=== PATIENT | female | born 1980 | race Asian ===

== ENCOUNTER → 2017-04-25 | Outpatient (CLI) | payer OTHER | LOC: BMCIMAGING 14:27 | PROVIDERS: ATTEND Internal Medicine | DX: Z12.31 Encounter for screening mammogram for malignant neoplasm of breast (principal) | CPT/HCPCS: G0202 ==

== ENCOUNTER → 2017-10-23 | Outpatient (CLI) | payer OTHER | LOC: FIMAGING 10:29 | PROVIDERS: ATTEND Obstetrics & Gynecology | DX: O09.522 Supervision of elderly multigravida, second trimester (principal); O09.812 Supervision of pregnancy resulting from assisted reproductive technology, second trimester; Z3A.20 20 weeks gestation of pregnancy; Z98.891 History of uterine scar from previous surgery ==

== ENCOUNTER 2017-11-17 06:00 | Inpatient (IN) | payer OTHER ==
--- NOTE | 2017-11-17 10:24 | GHP ---
[f rep st] HISTORY AND PHYSICAL DATE OF ADMISSION: 11/17/2017 ADMITTING DIAGNOSIS: Intrauterine demise at 20 weeks 4 days. HISTORY OF PRESENT ILLNESS: The patient is a 37-year-old, 2, para 1-0-0 -1, at 20 4/7 weeks with an estimated due date 03/08/2018 by IVF and embryo transfer 07/20/2017. The patient presented to my office two days ago for her routine visit. No heart tones were heard with Doppler. The patient then had an ultrasound that confirmed demise at 20 weeks 4 days with a large amount of edema, little fluid, anterior placenta, and size less than dates by 3 1/2 weeks. The patient and her , Jay were given support. Consulted about next steps, induction of labor with Cytotec versus D and E. Risks of both were discussed. The patient was going to consider her options and call the office. Patient called me yesterday and states they want to proceed with induction process. The patient denies any leakage of fluid, vaginal bleeding, or any contractions. The patient does have good care and presented to [facility] in her first trimester. is complicated by advanced maternal age. All genetic testing was negative. This by IVF, embryo transfer. The patient had a Level 2 ultrasound with MFM, the anatomy of abdominal wall, cord insertion and thoracic spine were suboptimally reviewed due to position. The patient was to follow up in 4 weeks to complete the anatomy evaluation and get a echo. The patient had a previous secondary to CPD. She is Rh negative. PAST OB HISTORY: In 2014, she delivered a viable male infant, at 39 weeks, weighing 7 pounds 8 ounces, via secondary to CPD, she pushed for 3-4 hours. GYNECOLOGIC HISTORY: Age of menarche 10-11 years. Cycle every 20-30 days for 2 -3 days. Patient has history of infertility and conceived G1 via IVF as well. The patient denies a history of abnormal Pap smears. 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 Denies exposure to any other sexually transmitted diseases. Has a history of OCP use, discontinued a year ago in 2014. PAST MEDICAL HISTORY: Advanced maternal age. Infertility. PAST SURGICAL HISTORY: In April 2017, she had a hysteroscopy. In 2014, she had a . MEDICATIONS: Baby aspirin, vitamin with DHEA, vitamin D. ALLERGIES: No known drug allergies. FAMILY HISTORY: Mother at age 61, diagnosed with breast cancer at age 52. SOCIAL HISTORY: Patient is . She is [id number] mom. Lives with her and their son. She denies any alcohol, tobacco or illicit drug use. REVIEW OF SYSTEMS: Ten-point review of systems is negative. Pertinent positives noted in HPI. LABS: Blood type O negative, antibody negative. Early 1 hour Glucola 60. RPR negative, non-reactive. Rubella immune. Hepatitis B surface antigen negative. HIV negative. Trio screen and standard panel negative in 2014. TSH , Free T4 2.25, 1.1. Varicella immune. Urine culture negative. Pap test negative. Gonorrhea and chlamydia cultures negative. AFP negative. Innatal screen negative. Vitamin D 26.7. PHYSICAL EXAMINATION: VITAL SIGNS: On admission, vital signs are stable. The patient is afebrile. GENERAL: Well-nourished, well-developed female, alert, oriented x3. Patient is tearful. CARDIOVASCULAR: Regular rate and rhythm. LUNGS: Clear to auscultation. ABDOMEN: Gravid, soft, nontender. PELVIC: Deferred. EXTREMITIES: Normal to inspection without calf tenderness or edema. ASSESSMENT: The patient is a 37-year-old, 2, para 1- 0-0-1, with intrauterine demise at 20 weeks 4 days. PLAN: 1. Admit to Labor and Delivery. 2. Will start induction with high-dose Cytotec, 400 mcg orally every 4 hours; discussed low risk to uterine scar at this gestational age. 3. Epidural as needed. 4. Will obtain lab work: Torch titers, CBC, ABO, CED and LAC. 5. Discussed with patient and , they want to hold the baby after delivery. They are still considering an autopsy. /[id number]/MODL MTDD
[2017-11-17] MEDS ORDERED: LR 1,000 ML IV PRN (10:45)
[2017-11-17] MEDS ORDERED: MISOPROSTOL 200 MCG TAB PO PRN (10:45)
[2017-11-17] MEDS ORDERED: FENT2MCG/ML&BUP0.1% 1 EA, fentaNYL 200 MCG, BUPIVACAINE 0.5% 20 ML in NS 100 ML IV SCH (11:23)
--- NOTE | 2017-11-17 12:01 | PREANESOB ---
Obstetric Pre-Anesthesia Info - General Info Proposed Procedure: ALCIDES - Info FHR Pattern: Non-reassuring (absent, IUFD) - Labor Status Indications for Labor Analgesia: Pain Control Labor Epidural: Yes Anesthesia ROS: negative Allergies/Adverse Reactions: Allergy/AdvReac Type Severity Reaction Status Date / Time No Known Allergies Allergy Unverified 04/18/15 03:50 Home Medications: Medication Instructions Recorded RX: Hydrocodone/APAP 5/325 [[place] 1 - 2 tab PO Q4 PRN #30 tab 04/21/15 5/325 (*)] Visit Medications: Generic Name Dose Route Start Last Admin Trade Name Freq PRN Reason Stop Dose Admin Lactated Ringer's 1,000 mls @ 0 mls/hr 11/17/17 10:45 Lr IV 11/18/17 10:44 PRN PRN SEE PROTOCOL CONDITIONS Protocol Per Protocol Fentanyl/Bupivacaine HCl 1 ea/ 100 mls @ mls/hr 11/17/17 11:23 Fentanyl 200 mcg/ Bupivacaine IV 11/27/17 11:22 HCl 20 ml/ Sodium Chloride AD JALYN Protocol As Directed Misoprostol 400 mcg 11/17/17 10:45 Cytotec PO Q4H PRN Induction for demise - Anesthesia History Response to Local Anesthetics: Not Applicable Anesthesia & Operative History: No Prior Problems Family Anesthesia History: Not Applicable - Focused Exam Neck exam: FROM Mallampati Score: Class 1 Mouth exam: normal dental/mouth exam Pulmonary: no respiratory distress Cardiovascular: regular rate and rhythym - Plan Consent Signed and on Chart: Yes Patient/Guardian Understands and Agrees to Plan: Yes Urgent/Emergent Case: Nati finch completed preop but documented later for safe timely pt care
[2017-11-17] MEDS ORDERED: BUPIVACAINE 0.25% 30 ML SDV ONE (12:15)
[2017-11-17] MEDS ORDERED: PHENYLEPHRINE HCL 100 MCG/ML SYR ONE (12:16)
[2017-11-17 12:31] LABS: PLATELET COUNT 234 10^3/uL (150-400)
[2017-11-17] MEDS ORDERED: ONDANSETRON 4 MG/2 ML VIAL IVP PRN (13:14)
[2017-11-17] MEDS ORDERED: NALOXONE HCL 0.4 MG/ML INJ IVP PRN (13:14)
[2017-11-17] MEDS ORDERED: PHENYLEPHRINE HCL 100 MCG/ML SYR IVP PRN (13:14)
[2017-11-17] MEDS ORDERED: FENT2MCG/ML&BUP0.1% 1 EA, fentaNYL 200 MCG, BUPIVACAINE 0.5% 20 ML in NS 100 ML EP SCH (13:30)
[2017-11-17] MEDS ORDERED: LR 500 ML IV SCH (13:30)
[2017-11-17] MEDS ORDERED: fentaNYL 2MCG/ML/BUP 0.1% RTU 100 ML EP SCH (13:30)
[2017-11-17] MEDS ORDERED: TERBUTALINE SULFATE 1 MG/ML VIAL ONE (15:54)
[2017-11-17] MEDS ORDERED: LIDOCAINE 1% 300 MG/30 ML SDV ONE (15:54)
[2017-11-17] MEDS ORDERED: OLIVE OIL 118 ML BTL ONE (15:54)
[2017-11-17] MEDS ORDERED: OXYTOCIN 10 UNIT/ML VIAL ONE (15:54)
[2017-11-17] MEDS ORDERED: AMMONIA AROMATIC 1 EACH AMP IH ONE (15:54)
[2017-11-17] MEDS ORDERED: MISOPROSTOL 200 MCG TAB ONE (15:55)
--- NOTE | 2017-11-17 16:45 | OBPROG ---
Labor Progress Note Assessment/Plan: Assessment: 37 y/o @ 20 4/7 wks with IUFD Plan: Continue current management s/p Cytotec x 1 with ctx's q2-3 min SVE FT/25/-2, ant, soft Cont Cytotec q 4hrs, next dose due 1700 s/p epidural-comfortable Will give Immodium for diarrhea 11/17/17 16:52 Subjective/Intrapartum Course: 11/17/17 16:48 Pt is comfortable, s/p epidural. She is resting closing her eyes. Jay is at the bedside. She has had 3 episodes of diarrhea. Objective: 11/17/17 11:40 Patient ABO/Rh O POSITIVE 11/17/17 11:40 - SVE Dilation (cm): 0 Effacement (%): Less than 50 Station: -2 - Contraction Pattern Assessment Current Contraction Pattern: Regular - AP Antepartum Course: 11/17/17 16:49 IUFD at 20 4/7 wks; AMA; IVF with FET; Prior c/s secondary to CPD Oxytocin Orders Assessment - Pre-Induction/Augmentation Assessment Gestational Age: 24 week(s) and 1 day(s) ICD10 Worksheet Patient Problems: Problems Problem Status Onset demise affecting delivery Acute
[2017-11-17] MEDS ORDERED: LOPERAMIDE HCL 2 MG CAP PO PRN (16:52)
[2017-11-17] MEDS: MISOPROSTOL 200 MCG TAB PO SCH ×3 (17:45→23:01)
--- NOTE | 2017-11-17 23:11 | OBPROG ---
Labor Progress Note Assessment/Plan: Assessment: 37 y/o @ 20 4/7 wks with IUFD Plan: Continue current management s/p high-dose Cytotec x 2 SVE 10/19/-2 SROM at 2134, pt afebrile Starting to feel ctx's, may have to rebolus 11/17/17 23:01 Subjective/Intrapartum Course: 11/17/17 16:48 Pt is comfortable, s/p epidural. She is resting closing her eyes. Jay is at the bedside. She has had 3 episodes of diarrhea. 11/17/17 23:11 Pt is starting to feel her ctx's more. She has vomited once, no further diarrhea. She is unable to sleep. Objective: 11/17/17 11:40 Patient ABO/Rh O POSITIVE 11/17/17 11:40 - SVE Dilation (cm): 1 Effacement (%): Less than 50 Station: -2 Membranes: SROM Amniotic Fluid Color: Meconium Stained - Contraction Pattern Assessment Current Contraction Pattern: Regular - AP Antepartum Course: 11/17/17 16:49 IUFD at 20 4/7 wks; AMA; IVF with FET; Prior c/s secondary to CPD Oxytocin Orders Assessment - Pre-Induction/Augmentation Assessment Gestational Age: 24 week(s) and 1 day(s) ICD10 Worksheet Patient Problems: Problems Problem Status Onset demise affecting delivery Acute
[2017-11-17] MEDS ORDERED: ZOLPIDEM TARTRATE 5 MG TAB PO ONE (23:23)
[2017-11-18 00:30] LABS: INR 0.93 (0.83-1.16); PROTIME(PATIENT) 12.7 SEC (12.0-15.0)
[2017-11-18] MEDS: MISOPROSTOL 200 MCG TAB PO SCH (03:46)
--- NOTE | 2017-11-18 04:18 | OBPROG ---
Labor Progress Note Assessment/Plan: Assessment: 37 y/o @ 20 4/7 wks with IUFD Plan: Continue current management s/p high-dose Cytotec x 3 SVE 50/-1; bulging forebag Pt afebrile 11/18/17 04:07 Subjective/Intrapartum Course: 11/17/17 16:48 Pt is comfortable, s/p epidural. She is resting closing her eyes. Jay is at the bedside. She has had 3 episodes of diarrhea. 11/17/17 23:11 Pt is starting to feel her ctx's more. She has vomited once, no further diarrhea. She is unable to sleep. 11/18/17 04:18 Pt is resting comfortably. A bloody show is noted. Objective: 11/17/17 11:40 Patient ABO/Rh O POSITIVE 11/17/17 11:40 - SVE Dilation (cm): 4 Effacement (%): 50 Station: -1 Membranes: SROM (bulging forebag) Amniotic Fluid Color: Meconium Stained - Contraction Pattern Assessment Current Contraction Pattern: Regular - AP Antepartum Course: 11/17/17 16:49 IUFD at 20 4/7 wks; AMA; IVF with FET; Prior c/s secondary to CPD Oxytocin Orders Assessment - Pre-Induction/Augmentation Assessment Gestational Age: 24 week(s) and 1 day(s) ICD10 Worksheet Patient Problems: Problems Problem Status Onset demise affecting delivery Acute
[2017-11-18] MEDS ORDERED: METHYLERGONOVINE MAL 0.2 MG/ML INJ ONE (05:29)
[2017-11-18] MEDS ORDERED: HYDROCODONE/APAP 5/325 TAB PO PRN (05:41)
[2017-11-18] MEDS ORDERED: DOCUSATE SODIUM 100 MG CAP PO PRN (05:41)
--- NOTE | 2017-11-18 05:46 | OBDEL ---
Info Type: Vaginal Presentation at Delivery: Vertex (unknown- fetus had already delivered and was in the bed) L&D Analgesia/Anesthesia Type: Epidural GBS+: No (unknown) Intrapartum Medications: Generic Name Dose Route Start Last Admin Trade Name Freq PRN Reason Stop Dose Admin Lactated Ringer's 1,000 mls @ 0 mls/hr 11/17/17 10:45 11/17/17 12:20 Lr IV 11/18/17 10:44 1,000 mls PRN PRN Administration SEE PROTOCOL CONDITIONS Protocol Per Protocol Loperamide HCl 2 mg 11/17/17 16:52 11/17/17 18:43 Imodium PO 05/16/18 16:51 2 mg QID PRN Administration Diarrhea/Loose Stools Misoprostol 400 mcg 11/17/17 17:00 11/18/17 03:46 Cytotec PO 05/16/18 16:59 400 mcg Q4H JALYN Administration Discontinued Medications Generic Name Dose Route Start Last Admin Trade Name Freq PRN Reason Stop Dose Admin Misoprostol 400 mcg 11/17/17 10:45 11/17/17 12:56 Cytotec PO 400 mcg Q4H PRN Administration Induction for demise Zolpidem Tartrate 5 mg 11/17/17 23:23 11/18/17 00:07 Ambien PO 11/17/17 23:24 5 mg ONCE ONE Administration - Hospital Course Intrapartum: 11/17/17 16:48 Pt is comfortable, s/p epidural. She is resting closing her eyes. Jay is at the bedside. She has had 3 episodes of diarrhea. 11/17/17 23:11 Pt is starting to feel her ctx's more. She has vomited once, no further diarrhea. She is unable to sleep. 11/18/17 04:18 Pt is resting comfortably. A bloody show is noted. 11/19/17 11:39 Indications for Delivery: Elective (IOL for IUFD at 20 4/7 weeks) Vaginal Delivery - Delivery Provider Delivery Physician/CNM: Zaria Howard - Labor and Delivery Onset of Contractions Date: 11/17/17 Onset of Contractions Time: 12:00 Onset of Contractions Type: Induced Rupture of Membranes Date: 11/17/17 Rupture of Membranes Time: 21:34 Rupture of Membranes Type: Spontaneous Amniotic Fluid Color: Meconium Stained Dilation Complete Date: 11/18/17 Dilation Complete Time: 05:15 Placenta Delivery Date: 11/18/17 Placenta Delivery Time: 05:15 Total Hours of Labor: 17 Laceration: Other (Specify) (Perineum intact) Repair: Other (Specify) (none) Vaginal Sponge Count Correct: Yes Vaginal Needle Count Correct: Yes Vaginal Sweep Performed: Yes EBL: 800 cc Delivery Events: None Delivery Comment: Fetus delivered en caul with placenta in bed. Vagina inspected and no lacs noted. Uterine atony noted with bleeding after delivery. Bimanual massage performed with expulsion of about 500 cc blood/clots. Pt was given 800 mcg Cytotec as well as Methergine 0.2 IM. Bleeding slowed down and uterus firm 2-3 below umbilicus. Pt michelle well. No complications. - Medications Labor Augmentation/Induction Methods Used: Misoprostol Labor Augmentation/Induction Indication: Other (Specify) (IUFD) [place] Data MICHAEL: 03/08/18 Gestational Age: 24 week(s) and 5 day(s) Rodriugez Delivery Date: 11/18/17 Delivery Time: 05:15 Sex of Infant: Female ICD10 Worksheet Patient Problems: Problems Problem Status Onset demise affecting delivery Acute
[2017-11-18] MEDS: IBUPROFEN 600 MG TAB PO PRN ×2 (09:41→19:57)
[2017-11-18] MEDS ORDERED: ONDANSETRON DISINTEGRATING 4 MG TAB PO PRN (10:12)
[2017-11-18] MEDS ORDERED: ZOLPIDEM TARTRATE 5 MG TAB PO PRN (10:12)
--- NOTE | 2017-11-18 10:12 | OBPP ---
Progress Note Assessment/Plan: Assessment: 37 y/o PPD #0 s/p IOL secondary to IUFD @ 23 weeks. Plan: We will give the her and her all the time they need with the baby and for processing and paperwork. She will eat now and has Ibuprofen. She desires Zofran and Ibuprofen to d.c home when she is ready. They will be given many resources for therapy and support. And education to call [facility] if she develops a fever, heavy vaginal bleeding or other concerns. 11/18/17 10:09 Subjective/ Course: 11/18/17 10:06 Pt is feeling some increased cramping now. She denies nausea, vomiting and has a good appetite this am. She has her terry d/c but hasn't been up to void yet. Her lochia is minimal. She and her are processing the loss and we had a lengthly discussion about how they are going to grieve, and tell their family and friends. They are not sure when they would like to go home, today or tomorrow. Objective: 11/17/17 11:40 Patient ABO/Rh O POSITIVE 11/17/17 11:40 Uterine Position/Fundal Height: Umbilicus -2 Uterine Tone: Firm Physical Exam - Physical Exam General Appearance: alert, no apparent distress Neck: non-tender, full range of motion, supple Respiratory: chest non-tender, lungs clear, normal breath sounds Cardiac/Chest: regular rate, rhythm Abdomen: normal bowel sounds Extremities: swelling (no), Raissa's sign (neg)
--- NOTE | 2017-11-18 10:15 | OBGCSDC ---
General Delivery Information - General Info : 2 Para: 2 Abortions: 1 Type: Vaginal L&D Analgesia/Anesthesia Type: Epidural Admission Date: 11/17/17 Labs: Patient ABO/Rh O POSITIVE 11/17/17 11:40 Hct 36.4 % (38.0-47.0) L 11/17/17 11:40 - Hospital Course Antepartum: 11/17/17 16:49 IUFD at 20 4/7 wks; AMA; IVF with FET; Prior c/s secondary to CPD Intrapartum: 11/17/17 16:48 Pt is comfortable, s/p epidural. She is resting closing her eyes. Jay is at the bedside. She has had 3 episodes of diarrhea. 11/17/17 23:11 Pt is starting to feel her ctx's more. She has vomited once, no further diarrhea. She is unable to sleep. 11/18/17 04:18 Pt is resting comfortably. A bloody show is noted. : 11/18/17 10:06 Pt is feeling some increased cramping now. She denies nausea, vomiting and has a good appetite this am. She has her terry d/c but hasn't been up to void yet. Her lochia is minimal. She and her are processing the loss and we had a lengthly discussion about how they are going to grieve, and tell their family and friends. They are not sure when they would like to go home, today or tomorrow. Vaginal - Delivery Provider Delivery Physician/CNM: Zaria Howard - Diagnosis Labor: Induced Rupture of Membranes Type: Spontaneous Amniotic Fluid Color: Meconium Stained Laceration: Other (Specify) (Perineum intact) Delivery Events: None - Delivery EBL: 800 cc [place] Data MICHAEL: 03/08/18 Gestational Age: 24 week(s) and 2 day(s) Rodriguez Delivery Date: 11/18/17 Delivery Time: 05:15 Sex of Infant: Female Discharge Information - Discharge Information Prescriptions: Ibuprofen [Motrin (*)] 600 mg PO Q6HRS PRN #30 tab PRN Reason: Pain, Inflammatory Ondansetron Odt [Zofran Odt 4 mg (*)] 4 mg PO Q6HRS PRN #30 tab PRN Reason: Nausea/Vomiting, Use 1st Zolpidem Tartrate [Ambien 5MG (*)] 5 mg PO HS PRN #30 tab PRN Reason: Sleep/Insomnia Instruction/Follow Up: Two Weeks
--- NOTE | 2017-11-20 08:14 | POSTANESTH ---
Post Anesthetic Evaluation Cardiovascular Status: Normal, Stable, Similar to Pre-Op Cond Respiratory Status: Normal, Stable, Similar to Pre-op Cond. Level of Consciousness/Mental Status: Can Participate in Eval, Alert and Oriented Pain Control: Adequate, Prn Tx Ordered Nausea/Vomiting Control: Adequate, Prn Tx Ordered Complications Possibly Related to Anesthesia: None Noted
== END 2017-11-18 21:05 | disposition home or self-care (01) | DRG 775 ==
LOC: FLD 10:20
PROVIDERS: ADMIT Obstetrics & Gynecology; ATTEND Obstetrics & Gynecology
PROC: 10E0XZZ Delivery of Products of Conception, External Approach (ICD-10-PCS; principal; 2017-11-17)
PROC: 3E033VJ Introduction of Other Hormone into Peripheral Vein, Percutaneous Approach (ICD-10-PCS; principal; 2017-11-17)
PROC: 10903ZC Drainage of Amniotic Fluid, Therapeutic from Products of Conception, Percutaneous Approach (ICD-10-PCS; principal; 2017-11-17)
DX: O36.4XX0 Maternal care for intrauterine death, not applicable or unspecified (principal); O77.0 Labor and delivery complicated by meconium in amniotic fluid; Z3A.24 24 weeks gestation of pregnancy; Z37.1 Single stillbirth
CPT/HCPCS: 86147-90; 86644-90; 86645-90; 86694-90; 86777-90; 86778-90; J2210; J2370; J2405; J2590; J3010; J3105

== ENCOUNTER → 2018-10-22 | Outpatient (CLI) | payer OTHER | LOC: FIMAGING 09:46 | PROVIDERS: ATTEND Obstetrics & Gynecology | DX: O09.522 Supervision of elderly multigravida, second trimester (principal); O09.812 Supervision of pregnancy resulting from assisted reproductive technology, second trimester; Z3A.19 19 weeks gestation of pregnancy ==

== ENCOUNTER 2018-11-15 10:00 | Inpatient (IN) | payer OTHER ==
[2018-11-15] MEDS ORDERED: EPSOM SALT 454 GM TP PRN (11:17)
[2018-11-15] MEDS ORDERED: OXYTOCIN/RINGERS LACTATE 1,000 ML IV PRN (11:17)
[2018-11-15] MEDS ORDERED: OLIVE OIL 118 ML BTL MISC PRN (11:17)
[2018-11-15] MEDS ORDERED: LIDOCAINE 1% 300 MG/30 ML SDV SC PRN (11:17)
[2018-11-15] MEDS ORDERED: LR 1,000 ML IV PRN (11:17)
[2018-11-15] MEDS ORDERED: IBUPROFEN 600 MG TAB PO PRN (11:17)
[2018-11-15] MEDS ORDERED: MISOPROSTOL 200 MCG TAB PR PRN (11:17)
[2018-11-15] MEDS: MISOPROSTOL 200 MCG TAB PO SCH (11:33)
[2018-11-15 11:46] LABS: PLATELET COUNT 225 10^3/uL (150-400)
--- NOTE | 2018-11-15 11:55 | GHP ---
[f rep st] PREOP HISTORY AND PHYSICAL DATE OF ADMISSION: 11/15/2018 ADMITTING DIAGNOSIS: Intrauterine at 23 weeks gestation with an intrauterine , for induction of labor. HISTORY OF PRESENT ILLNESS: The patient is a 38-year-old, 3, para 1-0-1-1, who had a e mbryo transfer on 06/26/2018, giving her an EDC of 03/14/2019. Patient presented for her regularly s cheduled appointment yesterday, on 11/14, at 22-6/7 weeks gestation and was very concerned b ecause she had not felt movement. Ultrasound was performed and confirmed an intrauterine . There was no cardiac activity, no movement. There was amniotic fluid seen, poss ible pericardial effusion, and some body edema. Ultrasound was confirmed by 2 physicians. The patie nt had previously been seen 2 weeks prior with concerns of decreased movement and had normal Do ptones in the 140s, but no ultrasound was performed. Her level 2 ultrasound with MFM was on 10/22/19 19, and was within normal limits. Unfortunately, patient has a history of an intrauterine deat h on 11/17/2017, at 20 weeks gestation. She underwent a Cytotec induction of labor and had a spontan eous vaginal delivery with that baby. She is familiar with the process, understands her options of s urgical dilation and extraction done with a specialist in [place] versus an induction of labor and a v aginal delivery here at [facility], and she wishes to have an induction of labor as she did in 2018. Currently, she has had minimal fundal cramping this morning, but that has resolved. No contr actions, no leakage of fluid, no vaginal bleeding, and no other significant symptoms, and negative re view of symptoms. PAST OBSTETRICAL HISTORY: In 2016, she had a section secondary to arrest. She had a vagina l delivery for her intrauterine last year, a successful . As mentioned, in October of 2017, she had an intrauterine at approximately 20 weeks gestation. This is an IVF pre gnancy from her own embryos that were frozen at age 34. She has had normal labs in this an d a normal level 2 ultrasound prior to yesterday. LABORATORIES: She is O positive, antibody negative. RPR nonreactive. Rubella immune. Hepatitis ne gative. HIV negative. Standard panel negative. PH labs at baseline were normal. P:c ratio was 0.4 5. Urine drug screen was negative. Single marker AFP was normal. Verify was normal. Varicella imm une. Parvovirus negative. SOCIAL HISTORY: She is . She lives with her and her son. She denies tobacco, alcoho l, and drug use. FAMILY HISTORY: Noncontributory. ALLERGIES: She has no known drug allergies. CURRENT MEDICATIONS: Only include vitamins with DHA, vitamin D, and a baby aspirin. OBJECTIVE: Today, she is afebrile. Vital signs are stable. heart tones are not interpreted. [place] is negative as of now. ASSESSMENT AND PLAN: A 38-year-old, 3, para 1-0-1-1, at 23-0/7 weeks gestation today with in trauterine . We will start with Cytotec orally 400 mg q.4. Patient will desire an epidur al for pain control or intravenous narcotics as needed. Patient is deciding about chromosomal analys is and/or autopsy on the baby. /[id number]/MODL
[2018-11-15] MEDS ORDERED: fentaNYL 2MCG/ML/BUP 0.1% RTU 100 ML BAG EP ONE (13:37)
[2018-11-15] MEDS ORDERED: PHENYLEPHRINE HCL 100 MCG/ML SYR ONE (13:39)
[2018-11-15] MEDS ORDERED: ONDANSETRON 4 MG/2 ML VIAL IVP PRN (13:48)
[2018-11-15] MEDS ORDERED: NALOXONE HCL 0.4 MG/ML INJ IVP PRN (13:48)
[2018-11-15] MEDS ORDERED: PHENYLEPHRINE HCL 100 MCG/ML SYR IVP PRN (13:48)
--- NOTE | 2018-11-15 13:48 | PREANESOB ---
Obstetric Pre-Anesthesia Info - General Info Proposed Procedure: induction and delivery after demise : 3 Para: 0 MICHAEL: 03/14/19 Gestational Age: 23 week(s) and 0 day(s) - Info Status: Premature - Labor Status Indications for Labor Analgesia: Augmentation of Labor Labor Epidural: Proposed Anesthesia ROS: No URI x2 weeks demise at 22 weeks. Second occurence. No work-up for clotting disorder, but pt denies any easy bruising or bleeding gums. Allergies/Adverse Reactions: Allergy/AdvReac Type Severity Reaction Status Date / Time No Known Allergies Allergy Unverified 11/15/18 10:42 Home Medications: Medication Instructions Recorded Zolpidem Tartrate [Ambien 5MG (*)] 5 mg PO HS PRN #30 tab 11/18/17 Aspirin [Aspirin 81mg (*)] 81 mg PO DAILY 11/15/18 Pnv No.121/Iron/Folic Acid 1 each PO 11/15/18 [ Multivitamin Tablet] Visit Medications: Generic Name Dose Route Start Last Admin Trade Name Freq PRN Reason Stop Dose Admin Lactated Ringer's 1,000 mls @ 0 mls/hr 11/15/18 11:17 Lr IV 11/16/18 11:16 PRN PRN SEE PROTOCOL CONDITIONS Protocol Per Protocol Oxytocin/Lactated Ringer's 1,000 mls @ 125 mls/hr 11/15/18 11:17 Pitocin 20 Units/Lr (Premix) IV PRN PRN Post bleeding Ibuprofen 600 mg 11/15/18 11:17 Motrin PO ONCE PRN post , pain Lidocaine HCl 300 mg 11/15/18 11:17 Lidocaine Hcl 1% SC 05/14/19 11:16 ONCE PRN episiotomy Magnesium Sulfate 454 gm 11/15/18 11:17 Epsom Salt TP 05/14/19 11:16 Q1H PRN perineal discomfort Misoprostol 800 - 1,000 mcg 11/15/18 11:17 Cytotec WA ONCE PRN Vaginal Atony/Bleeding Misoprostol 400 mcg 11/15/18 11:30 11/15/18 11:33 Cytotec PO 05/14/19 11:29 400 mcg Q6H JALYN Administration [place] Oil 118 ml 11/15/18 11:17 Sweet Oil MISC 05/14/19 11:16 ONCE PRN perineal massage Discontinued Medications Generic Name Dose Route Start Last Admin Trade Name Ashley PRN Reason Stop Dose Admin Fentanyl/Bupivacaine HCl Confirm 11/15/18 13:37 Fentanyl/Bupivacaine/Ns 2 Mcg/Ml 0.1% (Premix Administered 11/15/18 13:38 Dose 100 ml EP .STK-MED ONE Phenylephrine HCl Confirm 11/15/18 13:39 Neosynephrine Administered 11/15/18 13:40 Dose 1,000 mcg .ROUTE .STK-MED ONE - Anesthesia History Response to Local Anesthetics: Normal Anesthesia & Operative History: No Prior Problems Family Anesthesia History: Negative - Vital Signs Height/Weight (Nursing): Height 152.4 cm Weight 48.081 kg Weight: 152 kg Height: 48 cm - Focused Exam Neck exam: FROM Mallampati Score: Class 1 Mouth exam: normal dental/mouth exam Pulmonary: clear to auscultation Cardiovascular: regular rate and rhythym Labs: 11/15/18 11:10 Patient ABO/Rh O POSITIVE 11/15/18 11:10 - Plan Anesthetic Plan: labor epidural Consent Signed and on Chart: Yes Patient/Guardian Understands and Agrees to Plan: Yes General Comments: Plt count normal at 225
[2018-11-15] MEDS ORDERED: fentaNYL 2MCG/ML/BUP 0.1% RTU 100 ML EP SCH (14:00)
[2018-11-15] MEDS ORDERED: LR 500 ML IV SCH (14:00)
[2018-11-15] MEDS: LOPERAMIDE HCL 2 MG CAP PO PRN ×2 (14:40→16:06)
[2018-11-15] MEDS ORDERED: LOPERAMIDE HCL 2 MG CAP PO PRN (16:03)
--- NOTE | 2018-11-15 16:17 | OBPROG ---
Labor Progress Note Assessment/Plan: Assessment: 38 y/o @ 23 weeks with IUFD Plan: One dose of Cytotec 400 mg PO has given her strong and regular contractions and severe diarrhea. I cannot AROM her yet, cervix is only 1 cm and firm. She is leigh too frequently for pitocin or another dose of cytotec. (I'm not inclined to repeat this due to the diarrhea). We will wait 2 more hours and then re assess cervical dilation. Hopefully repeat doses of Imodium will help diarrhea. 11/15/18 16:17 Subjective/Intrapartum Course: 11/15/18 16:12 Pt is comfortable with her epidural, but having significant diarrhea. She received 4 mg of Imodium 1 hour ago and just received another dose. She is feeling cramping but not painful contractions. No LOF, no VB now. Objective: 11/15/18 11:10 Patient ABO/Rh O POSITIVE 11/15/18 11:10 - SVE Dilation (cm): 1 Effacement (%): 50 Station: -2 Membranes: Intact (firm) - Contraction Pattern Assessment Current Contraction Pattern: Regular (Q 2-3 minutes) - AP Antepartum Course: 11/15/18 16:15 AMA IVF demise @ 23 weeks, h/o demise @ 20 weeks 10/2017 Oxytocin Orders Assessment - Pre-Induction/Augmentation Assessment Gestational Age: 23 week(s) and 0 day(s) ICD10 Worksheet Patient Problems: Problems Problem Status Onset demise affecting delivery Acute
[2018-11-15] MEDS ORDERED: OXYTOCIN 10 UNIT/ML VIAL ONE (16:59)
[2018-11-15] MEDS ORDERED: AMMONIA AROMATIC 1 EACH AMP IH ONE (16:59)
[2018-11-15] MEDS ORDERED: TERBUTALINE SULFATE 1 MG/ML VIAL ONE (16:59)
[2018-11-15] MEDS ORDERED: OLIVE OIL 118 ML BTL ONE (16:59)
[2018-11-15] MEDS ORDERED: LIDOCAINE 1% 300 MG/30 ML SDV ONE (16:59)
[2018-11-15] MEDS ORDERED: MISOPROSTOL 200 MCG TAB ONE ×2 (17:00→19:36)
--- NOTE | 2018-11-15 19:04 | OBPROG ---
Labor Progress Note Assessment/Plan: Assessment: 38 y/o @ 23 weeks with IUFD Plan: I placed a second dose of cytotec, this time vaginally 600 mg. I am hopeful that PV dosing may cause less diarrhea than PO, but I feel that pitocin may not be effective at this gestation and I don't want to loose momentum. She is tolerating well and generally comfortable with her epidural. 11/15/18 16:17 11/15/18 19:02 Subjective/Intrapartum Course: 11/15/18 16:12 Pt is comfortable with her epidural, but having significant diarrhea. She received 4 mg of Imodium 1 hour ago and just received another dose. She is feeling cramping but not painful contractions. No LOF, no VB now. 11/15/18 19:01 Pt is aware of some cramping but they are not painful. Diarrhea has improved now, last dose of Imodium was at 18:00. Objective: 11/15/18 11:10 Patient ABO/Rh O POSITIVE 11/15/18 11:10 - SVE Dilation (cm): 1 Effacement (%): 50 Station: -1 Membranes: Intact (firm) - Contraction Pattern Assessment Current Contraction Pattern: Regular (Q 2-3 minutes) - AP Antepartum Course: 11/15/18 16:15 AMA IVF demise @ 23 weeks, h/o demise @ 20 weeks 10/2017 Oxytocin Orders Assessment - Pre-Induction/Augmentation Assessment Gestational Age: 23 week(s) and 0 day(s) ICD10 Worksheet Patient Problems: Problems Problem Status Onset demise affecting delivery Acute
--- NOTE | 2018-11-15 21:41 | OBPROG ---
Labor Progress Note Assessment/Plan: Assessment: 38 y/o @ 23 weeks with IUFD Plan: She is leigh actively after 2nd dose of cytotec. Baby is much lower in her pelvis and her cervix is thin. AROM bloody fluid now. Her uterus is relaxing in between contractions and I do not feel that her uterine scar is compromised now. Will continue to observe closely. 11/15/18 16:17 11/15/18 19:02 11/15/18 21:38 Subjective/Intrapartum Course: 11/15/18 16:12 Pt is comfortable with her epidural, but having significant diarrhea. She received 4 mg of Imodium 1 hour ago and just received another dose. She is feeling cramping but not painful contractions. No LOF, no VB now. 11/15/18 19:01 Pt is aware of some cramping but they are not painful. Diarrhea has improved now, last dose of Imodium was at 18:00. 11/15/18 21:37 Pt has begun to feel "shaky" and having more uterine cramping and some transient discomfort in LLQ portion of her incision. Objective: 11/15/18 11:10 Patient ABO/Rh O POSITIVE 11/15/18 11:10 - SVE Dilation (cm): 2 Effacement (%): 80 Station: +1 Membranes: AROM, Intact (firm) Amniotic Fluid Color: Bloody - Contraction Pattern Assessment Current Contraction Pattern: Regular (Q 1-2 minutes) - Procedures Non-surgical Procedures: Amniotomy - AP Antepartum Course: 11/15/18 16:15 AMA IVF demise @ 23 weeks, h/o demise @ 20 weeks 10/2017 Oxytocin Orders Assessment - Pre-Induction/Augmentation Assessment Gestational Age: 23 week(s) and 0 day(s) ICD10 Worksheet Patient Problems: Problems Problem Status Onset demise affecting delivery Acute
[2018-11-16] MEDS: MISOPROSTOL 200 MCG TAB PO SCH ×2 (00:13→00:16)
[2018-11-16] MEDS ORDERED: METHYLERGONOVINE MAL 0.2 MG/ML INJ ONE (01:31)
[2018-11-16] MEDS ORDERED: HYDROCORTISONE 0.5% CREAM TP PRN (01:41)
[2018-11-16] MEDS ORDERED: SIMETHICONE 80 MG TAB CHEW PO PRN (01:41)
[2018-11-16] MEDS ORDERED: oxyCODONE IR 5 MG TAB PO PRN (01:41)
[2018-11-16] MEDS ORDERED: IBUPROFEN 600 MG TAB PO PRN (01:41)
[2018-11-16] MEDS ORDERED: DOCUSATE SODIUM 100 MG CAP PO PRN (01:41)
[2018-11-16] MEDS ORDERED: ACETAMINOPHEN 325 MG TAB PO PRN (01:41)
--- NOTE | 2018-11-16 01:46 | OBDEL ---
Info Type: Vaginal Presentation at Delivery: Breech L&D Analgesia/Anesthesia Type: Epidural GBS+: No Intrapartum Medications: Generic Name Dose Route Start Last Admin Trade Name Freq PRN Reason Stop Dose Admin Fentanyl/Bupivacaine HCl 100 mls @ 0 mls/hr 11/15/18 14:00 11/15/18 23:44 Fentanyl/Bupivacaine/Ns 2 Mcg/Ml 0.1% (Premix EP 11/25/18 13:59 100 mls CONT JALYN Administration Protocol As Directed Loperamide HCl 2 mg 11/15/18 16:03 11/15/18 18:18 Imodium PO 05/14/19 16:02 2 mg PRN PRN Administration LOOSE STOOLS Misoprostol 400 mcg 11/15/18 11:30 11/16/18 00:16 Cytotec PO 05/14/19 11:29 Not Given Q6H JALYN Discontinued Medications Generic Name Dose Route Start Last Admin Trade Name Freq PRN Reason Stop Dose Admin Loperamide HCl 2 mg 11/15/18 14:29 11/15/18 16:06 Imodium PO 05/14/19 14:28 2 mg QID PRN Administration Diarrhea/Loose Stools - Hospital Course Intrapartum: 11/15/18 16:12 Pt is comfortable with her epidural, but having significant diarrhea. She received 4 mg of Imodium 1 hour ago and just received another dose. She is feeling cramping but not painful contractions. No LOF, no VB now. 11/15/18 19:01 Pt is aware of some cramping but they are not painful. Diarrhea has improved now, last dose of Imodium was at 18:00. 11/15/18 21:37 Pt has begun to feel "shaky" and having more uterine cramping and some transient discomfort in LLQ portion of her incision. Vaginal Delivery - Delivery Provider Delivery Physician/CNM: Shanice Rothman - Labor and Delivery Onset of Contractions Date: 11/15/18 Onset of Contractions Time: 11:40 Onset of Contractions Type: Induced Rupture of Membranes Date: 11/15/18 Rupture of Membranes Type: Artificial Amniotic Fluid Color: Bloody Non-surgical Procedures: Amniotomy Laceration: Other (Specify) (none) Vaginal Sponge Count Correct: Yes Vaginal Needle Count Correct: Yes Vaginal Sweep Performed: Yes EBL: 400 Delivery Events: Other (Specify) (IUFD @ 23 weeks) - Medications Labor Augmentation/Induction Methods Used: Misoprostol Labor Augmentation/Induction Indication: Other (Specify) (IUFD @ 23 weeks) Data MICHAEL: 03/14/19 Gestational Age: 23 week(s) and 1 day(s) Rodriguez Delivery Date: 11/16/18 Delivery Time: 01:14 Sex of : Female ICD10 Worksheet Patient Problems: Problems Problem Status Onset (spontaneous vaginal delivery) Acute demise affecting delivery Acute - ICD10 Problem Qualifiers (1) (spontaneous vaginal delivery) (2) demise affecting delivery
[2018-11-16] MEDS ORDERED: ONDANSETRON 4 MG/2 ML VIAL IVP ONE (03:00)
--- NOTE | 2018-11-16 03:22 | GOP ---
[f rep st] OPERATIVE REPORT DATE OF OPERATION: SURGEON: Shanice Rothman MD PREOPERATIVE DIAGNOSIS: POSTOPERATIVE DIAGNOSIS: PROCEDURE PERFORMED: FINDINGS: DESCRIPTION OF PROCEDURE: Patient was comfortable with her epidural. I was called to the bedside wi th parts presenting. Baby delivered in ilana breech presentation. The cord was clamped and cu t. Baby was placed in a blanket and handed to the mom to hold. She after several minutes had gushes of blood. Placenta was in the vagina. I introduced my fingers and with gentle traction delivered t he placenta intact. Patient afterwards had a large gush of blood, approximately 400 cc total, and wa s given a dose of IM Methergine as well as Pitocin in her IV fluids. Bleeding now appeared stable. Patient will be watched or watched overnight for bleeding. Plan is to send the baby for chromosome a nalysis as well as a formal autopsy. ADMITTING DIAGNOSES: 1. Intrauterine at 23 weeks. 2. Spontaneous vaginal delivery after induction of labor with oral as well as vaginal misoprostol. /[id number]/MODL
--- NOTE | 2018-11-16 11:07 | OBGCSDC ---
General Delivery Information - General Info : 3 Para: 1 Abortions: 1 Type: Vaginal L&D Analgesia/Anesthesia Type: Epidural Admission Date: 11/15/18 Labs: Patient ABO/Rh O POSITIVE 11/15/18 11:10 Hct 36.4 % (38.0-47.0) L 11/15/18 11:10 - Hospital Course Antepartum: 11/15/18 16:15 AMA IVF demise @ 23 weeks, h/o demise @ 20 weeks 10/2017 Intrapartum: 11/15/18 16:12 Pt is comfortable with her epidural, but having significant diarrhea. She received 4 mg of Imodium 1 hour ago and just received another dose. She is feeling cramping but not painful contractions. No LOF, no VB now. 11/15/18 19:01 Pt is aware of some cramping but they are not painful. Diarrhea has improved now, last dose of Imodium was at 18:00. 11/15/18 21:37 Pt has begun to feel "shaky" and having more uterine cramping and some transient discomfort in LLQ portion of her incision. Vaginal - Delivery Provider Delivery Physician/CNM: Shanice Rothman - Diagnosis Labor: Induced Rupture of Membranes Type: Artificial Amniotic Fluid Color: Bloody Laceration: Other (Specify) (none) Delivery Events: Other (Specify) (IUFD @ 23 weeks) - Procedures Non-surgical Procedures: Amniotomy - Delivery Non-surgical Procedures: Amniotomy EBL: 400 [place] Data MICHAEL: 03/14/19 Gestational Age: 23 week(s) and 1 day(s) Rodriguez Delivery Date: 11/16/18 Delivery Time: 01:14 Sex of : Female Discharge Information - Discharge Information Condition: Fair
--- NOTE | 2018-11-16 11:07 | OBPP ---
Progress Note Assessment/Plan: Assessment: Plan: Objective: 11/15/18 11:10 Patient ABO/Rh O POSITIVE 11/15/18 11:10
--- NOTE | 2018-11-16 13:06 | POSTANESTH ---
Post Anesthetic Evaluation Cardiovascular Status: Normal, Stable, Similar to Pre-Op Cond Respiratory Status: Normal, Stable, Similar to Pre-op Cond. Level of Consciousness/Mental Status: Can Participate in Eval, Alert and Oriented Pain Control: Adequate, Prn Tx Ordered Nausea/Vomiting Control: Adequate, Prn Tx Ordered Complications Possibly Related to Anesthesia: None Noted Notes: Pt seen and examined. No ill effects after epidural. Back site c/d/i, no e/e/ e. Denies n/v/serrano.
== END 2018-11-16 13:05 | disposition home or self-care (01) | DRG 807 ==
LOC: EDSTATUS 10:00 → FLD 10:24
PROVIDERS: ADMIT Obstetrics & Gynecology; ATTEND Obstetrics & Gynecology
DX: O36.4XX0 Maternal care for intrauterine death, not applicable or unspecified (principal); O32.1XX0 Maternal care for breech presentation, not applicable or unspecified; O73.0 Retained placenta without hemorrhage; Z3A.23 23 weeks gestation of pregnancy; Z37.1 Single stillbirth
CPT/HCPCS: J2210; J2370; J2405; J2590; J3105